=== PATIENT | female | born 1935 | race Caucasian/White ===

== ENCOUNTER 2018-06-17 11:31 | Emergency (ER) | payer MEDICARE, OTHER ==
--- NOTE | 2018-06-17 12:24 | ERPHSYRPT ---
- History of Present Illness Time Seen by Provider: 06/17/18 12:16 Source: patient, family Exam Limitations: no limitations Patient Subjective Stated Complaint: hit lower left leg with car door, large skin tear Triage Nursing Assessment: Pt closed the car door and hit her bottom left leg and caused a large skin tear with moderate bleeding, unable to measure due to re -wrapping, BP 189/97, doesn't appear to be in any distress Physician History: The patient is an 82-year-old female with her family complaining that she accidentally hit her lower leg on her car door while she was trying to enter the car. The door causing a laceration to her lower leg. This happened about 3 hours ago area she bandaged it and went about her daily routine going to a visitation. Visitation is over and she comes in with significant bleeding through the bandage. She is on Coumadin for A. fib. Her last tetanus vaccination was 2014. She denies numbness or tingling. Her past medical history is significant for A. fib, high cholesterol, HTN, and hypothyroidism. Timing/Duration: today, hour(s) (3), sudden Quality: other (bleeding) Severity: moderate Location: extremities (left lower leg) Possible Causes: other (sharp metal) Associated Symptoms: denies symptoms, No swelling/mass/lumps Allergies/Adverse Reactions: latex Allergy (Verified 06/17/18 11:59) Home Medications: Aspirin 81 gm Chew [Baby Aspirin 81 mg Chew] 81 mg PO DAILY 06/17/18 [ History] Gabapentin 200 mg PO Q12H 06/17/18 [History] Levothyroxine Sodium [Unithroid] 0.5 tab PO DAILY 06/17/18 [History] Lovastatin 40 mg PO DAILY 06/17/18 [History] Metoprolol Tartrate 25 mg [Lopressor 25MG Tab] 12.5 mg PO BID 06/17/18 [ History] Warfarin Sodium 10 mg [Coumadin 10 MG] 7.5 mg PO DAILY 06/17/18 [History] Hx Tetanus, Diphtheria Vaccination/Date Given: (2014) - Review of Systems Constitutional: No Fever, No Chills Eyes: No Symptoms Ears, Nose, & Throat: No Symptoms Respiratory: No Cough, No Dyspnea Cardiac: No Chest Pain, No Edema, No Syncope Abdominal/Gastrointestinal: No Abdominal Pain, No Nausea, No Vomiting, No Diarrhea Genitourinary Symptoms: No Dysuria Musculoskeletal: No Back Pain, No Neck Pain Skin: Other (laceration) Neurological: No Dizziness, No Focal Weakness, No Sensory Changes Psychological: No Symptoms Endocrine: No Symptoms Hematologic/Lymphatic: No Symptoms Immunological/Allergic: No Symptoms All Other Systems: Reviewed and Negative - Past Medical History Pertinent Past Medical History: Yes Cardiac History: Arrhythmia, High Cholesterol, Hypertension Endocrine Medical History: Hypothyroidism - Past Surgical History Past Surgical History: Yes Gastrointestinal: Appendectomy, Cholecystectomy Female Surgical History: Hysterectomy, Dilation & Curettage, Other Other Surgical History: breast cyst, ovarian surgery - Social History Smoking Status: Never smoker Exposure to second hand smoke: No Drug Use: none Patient Lives Alone: No - Female History Hx Now: No - Nursing Vital Signs Nursing Vital Signs: Initial Vital Signs Pulse Rate 74 06/17/18 11:37 Blood Pressure 189/97 06/17/18 11:37 O2 Sat by Pulse Oximetry 98 06/17/18 11:37 Pain Scale Pain Intensity 6 - Physical Exam General Appearance: no apparent distress, alert Eye Exam: PERRL/EOMI, eyes nml inspection Ears, Nose, Throat Exam: normal ENT inspection, pharynx normal, moist mucous membranes Neck Exam: normal inspection, non-tender, supple, full range of motion Respiratory Exam: normal breath sounds, lungs clear, No respiratory distress Cardiovascular Exam: normal heart sounds, irregular Gastrointestinal/Abdomen Exam: soft, mass, No tenderness Pelvic Exam: not done Rectal Exam: not done Back Exam: normal inspection, normal range of motion, No CVA tenderness, No vertebral tenderness Extremity Exam: normal inspection, normal range of motion Neurologic Exam: alert, oriented x 3, cooperative, normal mood/affect, sensation nml, No motor deficits Skin Exam: normal color, warm, dry, laceration (V-shaped laceration to mid lower left leg.) SpO2 Interpretation: normal SpO2: 98 Oxygen Delivery: Room Air Procedures - Laceration/Wound Repair Left Calf Wound Location: Left, lower leg Wound Length (cm): 6 Wound's Depth, Shape: superficial, flap, contused tissue Wound Explored: clean Irrigated: Yes Hibiclens Prep: Yes Anesthesia: local, 1% Lidocaine Volume Anesthetic (ccs): 20 Wound Repaired With: Steri-strips Sterile Dressing Applied?: Yes Splint Applied?: No Sling Applied?: No Ordered Tests: Active Orders 24 hr Category Date Time Status Wound Care STAT Care 06/17/18 12:27 Active PT INR [PROTIME WITH INR] Stat Lab 06/17/18 12:26 Completed Medication Summary Discontinued Medications Generic Name Dose Route Start Last Admin Trade Name Glenna PRN Reason Stop Dose Admin Ceftriaxone Sodium 1,000 mg 06/17/18 13:35 06/17/18 13:43 Rocephin 1000 Mg Inj IM 06/17/18 13:36 1,000 mg STAT ONE Administration Ceftriaxone Sodium Confirm 06/17/18 13:41 Rocephin 1000 Mg Inj Administered 06/17/18 13:42 Dose 1,000 mg .ROUTE .STK-MED ONE Lidocaine HCl 20 ml 06/17/18 12:27 06/17/18 12:32 Xylocaine 1% Hcl 20 Ml Mdv IJ 06/17/18 12:28 20 ml STAT ONE Administration Lidocaine HCl Confirm 06/17/18 12:31 Xylocaine 1% Hcl 20 Ml Mdv Administered 06/17/18 12:32 Dose 20 ml .ROUTE .STK-MED ONE Lidocaine HCl Confirm 06/17/18 13:41 Xylocaine 1% Hcl 20 Ml Mdv Administered 06/17/18 13:42 Dose 3 ml .ROUTE .STK-MED ONE Lab/Rad Data: Laboratory Results 06/17/18 Range/Units 12:26 PT 25.4 H (9.95-12.35) SECONDS INR 2.17 (0.8-3.0) - Progress Progress: improved Progress Note: 06/17/18 13:34 The patient had a 6 cm contused flap skin tear to the distal lower left leg. The region was anesthetized with 20 mL of 1% lidocaine. A tourniquet was applied proximal to the skin tear. An attempt was made to suture the laceration. The skin thickness was much too thin to withstand suturing. The skin flap was then attempted to glue the edges with Dermabond but failed. Steri -Strips were finally used successfully to close the wound. A pressure dressing was applied. Course a tourniquet was released. The patient tolerated the procedure well. 06/17/18 14:00 The pressure Daniel wrap was removed briefly. There was scant blood on the gauze overlying the wound. The Daniel wrap was repositioned. The patient's foot was well perfused. Counseled pt/family regarding: diagnosis, need for follow-up - Departure Time of Disposition: 13:35 Departure Disposition: Home Clinical Impression: Skin tear of left lower leg without complication Condition: Stable Critical Care Time: No Referrals: FRANCO IRWIN Jr. [Primary Care Provider] - Additional Instructions: You had a skin tear with significant bleeding beneath the tear. Steri-Strips were used to close the skin tear. A pressure bandage was placed over the skin tear and wrapped with an Daniel bandage. If the pressure and the wrap is too tight , loosen the Daniel wrap. Keep your foot elevated as much as possible for today. You were given Rocephin 1 g by IM in the ER. Take cephalexin 500 mg 4 times a day for 10 days. If the bleeding resumes and soaks through the pad and Daniel wrap , please either return to this ER or seek care at another ER near your home. If the bleeding remains controlled, follow-up with your primary medical doctor on Tuesday and leave the Daniel wrap in place until then. Do not take your daily aspirin and Coumadin today. Your INR today was 2.17. Prescriptions: Cephalexin [Keflex] 500 mg PO QID #40 capsule
[2018-06-17] MEDS ORDERED: XYLOCAINE 1% HCL 20 ML MDV IJ ONE (12:27)
[2018-06-17] MEDS ORDERED: XYLOCAINE 1% HCL 20 ML MDV ONE ×2 (12:31→13:41)
[2018-06-17 12:44] LABS: INR 2.17 (0.8-3.0)
[2018-06-17] MEDS ORDERED: Rocephin 1000 MG INJ IM ONE (13:35)
[2018-06-17] MEDS ORDERED: Rocephin 1000 MG INJ ONE (13:41)
[2018-06-17 14:04] VITALS: BP 189/101; PULSE 65
[2018-06-17 14:05] VITALS: O2SAT 98
== END 2018-06-17 14:05 | disposition home or self-care (01) ==
LOC: ED 11:31
DX: S81.812A Laceration without foreign body, left lower leg, initial encounter (principal); W22.8XXA Striking against or struck by other objects, initial encounter; I48.91 Unspecified atrial fibrillation; Z79.01 Long term (current) use of anticoagulants; Z79.899 Other long term (current) drug therapy
CPT/HCPCS: 12002; 36415; 85610; 96372; 99284; J0696

== ENCOUNTER 2018-06-27 10:32 | Emergency (ER) | payer MEDICARE, OTHER ==
[2018-06-27 10:46] VITALS: BP 196/90; PULSE 72; O2SAT 96
--- NOTE | 2018-06-27 11:22 | ERPHSYRPT ---
- History of Present Illness Time Seen by Provider: 06/27/18 10:45 Source: patient, family Exam Limitations: no limitations Patient Subjective Stated Complaint: Pt states "Last tuesday and he glued it and put these strips on it and it has looked like this since then and still hurts." Triage Nursing Assessment: Pt alert and oriented X 3, skin pwd. Pt ambulates with an upright steady gait, able to speak in clear full sentences. Pt left jaeger has 4 steri strips with dried blood on them in tact, no swelling no redness noted. Physician History: 82 y/o white female presents for wound check left lower ext. pt had a skin tear 10 days ago. wound approximated with steristrips and placed on antibx. pt has not washed site in the 10 days. Timing/Duration: day(s) (10) Quality: other Location: extremities (left lower leg) Associated Symptoms: denies symptoms Allergies/Adverse Reactions: latex Allergy (Verified 06/17/18 11:59) Home Medications: Aspirin 81 gm Chew [Baby Aspirin 81 mg Chew] 81 mg PO DAILY 06/17/18 [ History] Gabapentin 200 mg PO Q12H 06/17/18 [History] Levothyroxine Sodium [Unithroid] 0.5 tab PO DAILY 06/17/18 [History] Lovastatin 40 mg PO DAILY 06/17/18 [History] Metoprolol Tartrate 25 mg [Lopressor 25MG Tab] 12.5 mg PO BID 06/17/18 [ History] Warfarin Sodium 10 mg [Coumadin 10 MG] 7.5 mg PO DAILY 06/17/18 [History] Hx Tetanus, Diphtheria Vaccination/Date Given: Yes Hx Influenza Vaccination/Date Given: Yes Hx Pneumococcal Vaccination/Date Given: Yes Immunizations Up to Date: Yes - Review of Systems Constitutional: No Symptoms Eyes: No Symptoms Ears, Nose, & Throat: No Symptoms Respiratory: No Symptoms Cardiac: No Symptoms Abdominal/Gastrointestinal: No Symptoms Genitourinary Symptoms: No Symptoms Musculoskeletal: No Symptoms Skin: Other (skin tear repair site left lower ext) Neurological: No Symptoms Psychological: No Symptoms Endocrine: No Symptoms Hematologic/Lymphatic: No Symptoms Immunological/Allergic: No Symptoms All Other Systems: Reviewed and Negative - Past Medical History Pertinent Past Medical History: Yes Neurological History: No Pertinent History ENT History: No Pertinent History Cardiac History: Arrhythmia, High Cholesterol, Hypertension Respiratory History: No Pertinent History Endocrine Medical History: Hypothyroidism Musculoskeletal History: No Pertinent History GI Medical History: No Pertinent History History: No Pertinent History Psycho-Social History: No Pertinent History Female Reproductive Disorders: No Pertinent History - Past Surgical History Past Surgical History: Yes Neuro Surgical History: No Pertinent History Cardiac: No Pertinent History Respiratory: No Pertinent History Gastrointestinal: Appendectomy, Cholecystectomy Genitourinary: No Pertinent History Musculoskeletal: No Pertinent History Female Surgical History: Hysterectomy, Dilation & Curettage, Other Other Surgical History: breast cyst, ovarian surgery - Social History Smoking Status: Never smoker Exposure to second hand smoke: No Drug Use: none Patient Lives Alone: No - Female History Hx Now: No - Nursing Vital Signs Nursing Vital Signs: Initial Vital Signs Temperature 98.1 F 06/27/18 10:39 Pulse Rate 72 06/27/18 10:39 Respiratory Rate 16 06/27/18 10:39 Blood Pressure 196/90 06/27/18 10:39 O2 Sat by Pulse Oximetry 96 06/27/18 10:39 Pain Scale Pain Intensity 2 - Physical Exam General Appearance: no apparent distress Eye Exam: PERRL/EOMI Ears, Nose, Throat Exam: normal ENT inspection, moist mucous membranes Neck Exam: normal inspection, non-tender, supple, full range of motion Respiratory Exam: normal breath sounds, lungs clear, airway intact, No chest tenderness, No respiratory distress, No accessory muscle use, No rhonchi, No wheezing, No stridor Cardiovascular Exam: regular rate/rhythm, normal heart sounds, normal peripheral pulses Gastrointestinal/Abdomen Exam: soft, normal bowel sounds, No tenderness, No guarding Pelvic Exam: not done Rectal Exam: not done Back Exam: normal inspection, normal range of motion, No CVA tenderness, No vertebral tenderness Extremity Exam: normal range of motion, pelvis stable Neurologic Exam: alert, oriented x 3, cooperative, 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 no evidence of infection. dried blood on steristrips) Lymphatic Exam: No adenopathy SpO2 Interpretation: normal SpO2: 96 Oxygen Delivery: Room Air - Course Nursing assessment & vital signs reviewed: Yes - Progress Progress: unchanged Counseled pt/family regarding: diagnosis, need for follow-up - Departure Time of Disposition: 11:24 Departure Disposition: Home Clinical Impression: Visit for wound check Condition: Stable Critical Care Time: No Referrals: FRANCO IRWIN Jr. [Primary Care Provider] - Additional Instructions: wash site daily with soap and water. keep steristrips in place until they fall off. continue antibiotics.
== END 2018-06-27 11:34 | disposition home or self-care (01) ==
LOC: ED 10:32
DX: Z48.00 Encounter for change or removal of nonsurgical wound dressing (principal); Z79.01 Long term (current) use of anticoagulants; Z79.899 Other long term (current) drug therapy
CPT/HCPCS: 99283